=== PATIENT | female | born 1955 | race African-American/Black ===

== ENCOUNTER → 2017-04-29 | Day surgery (SDC) | payer MEDICARE, MEDICAID ==
[~2017-04-29] VITALS: Ht 157.5 cm; Wt 74.4 kg
[~2017-04-29] MED LIST: ATEN100T PO; BUPIVACAINE/EPINEPHRINE 0.5% 50 ML VIAL ONE; BUPIVACAINE/EPINEPHRINE 0.5% PF 10 ML VIAL ONE; CALC667C PO; CHLORHEXIDINE GLUCONATE 2 % 1 PACK (2 CLOTHS) TOPICAL PRN; HYDR-3799 PO; LACTATED RINGER'S 1000 ML IV PRN; METOPROLOL TARTRATE 25 MG TAB PO PRN; MULT-65 PO; ONDANSETRON HCL 4 MG/2 ML VIAL IV PUSH PRN; POVIDONE IODINE 5% (ANTISEPSIS KIT) 4 APPLICATIONS EACH NARE PRN; SILVER SULFADIAZINE/LIDOCAINE CREAM 60 GM JAR EXTERNAL ONE; SODIUM CHLORID 0.9% 500 ML IV PRN; oxyCODONE/ACETAMINOPHEN 5 MG/325 MG TAB PO PRN
--- NOTE | 2017-04-29 11:56 | PD.HP.UP ---
H&P Update Note The Pre-Admit History and Physical Examination regarding the above named patient was reviewed (including, but not limited to, vital signs, heart, lungs, co-morbid conditions), and upon re-examination it is noted that: the patient's condition has not significantly changed since the last examination. Candido Erickson MD Apr 29, 2017 11:56
[2017-04-29 11:59] LABS: AUTOMATED NEUTROPHIL # 4.2 TH/MM3 (1.8-7.7); BASOPHIL # 0.1 TH/MM3 (0-0.2); EOSINOPHIL # 0.2 TH/MM3 (0-0.4); EOSINOPHIL % 2.8 % (0.0-4.0); HEMATOCRIT 34.8 % (35.0-46.0); HEMOGLOBIN 11.6 GM/DL (11.6-15.3); LYMPH % 24.5 % (9.0-44.0); LYMPHOCYTE # 1.6 TH/MM3 (1.0-4.8); MEAN CELL VOLUME 94.5 FL (80.0-100.0); MEAN CORPUSCULAR HEMOGLOBIN 31.5 PG (27.0-34.0); MEAN CORPUSCULAR HGB CONC 33.4 % (32.0-36.0); MEAN PLATELET VOLUME 11.6 FL (7.0-11.0); MONO % 8.3 % (0.0-8.0); MONOCYTE # 0.6 TH/MM3 (0-0.9); NEUT % 63.4 % (16.0-70.0); PLATELET COUNT 165 TH/MM3 (150-450); RED BLOOD COUNT 3.68 MIL/MM3 (4.00-5.30); WHITE BLOOD COUNT 6.6 TH/MM3 (4.0-11.0)
[2017-04-29 14:40] VITALS: BP 147/90; PULSE 67; RESP 20; TEMP 98.2; O2SAT 100
--- NOTE | 2017-04-30 10:50 | EKG ---
Date Performed: 04/29/2017 Time Performed: 11:46:57 PTAGE: 61 years EKG: Sinus rhythm NONSPECIFIC T-WAVE ABNORMALITY BORDERLINE ECG NO PREVIOUS TRACING DOCTOR: Zack Young Interpretating Date/Time 04/30/2017 10:49:10
--- NOTE | 2017-05-02 13:19 | MP ---
cc: CLAUDIA ABBASI M.D. DATE OF SURGERY 04/29/2017 PREOPERATIVE DIAGNOSIS Anal condyloma. PROCEDURE Exam under anesthesia with excision and fulguration of anal condyloma. POSTOPERATIVE DIAGNOSIS Anal condyloma. SURGEON Dr. Abbasi. DETAILS OF PROCEDURE The patient was placed in the left lateral decubitus position. After adequate anesthesia sedation the anal canal was prepped with Betadine solution and draped in the usual sterile fashion. Local anesthesia was obtained by injection of 0.5% Marcaine with epinephrine. The anal canal was dilated and a half-salter retractor inserted. Examination revealed condylomatous-type lesions along the anal canal from the anal verge up towards the dentate line in multiple quadrants. These were progressively excised and the bases fulgurated with electrocautery. After rather extensive fulguration no further lesions were obvious. There were some papilla and some benign hemorrhoid tissue but no other gross condylomatous tissue was remaining. The area was dressed with some Silvadene cream and a large Fluff dressing externally. The patient tolerated the procedure quite well and was brought to the recovery room in stable condition. MD BECKIE Sutherland/ALLIE /8:57 AM /1:01 PM
== END | disposition home or self-care (01) ==
LOC: HSDC 10:49
PROVIDERS: ATTEND Colon & Rectal Surgery
DX: A63.0 Anogenital (venereal) warts (principal); K62.89 Other specified diseases of anus and rectum; I12.0 Hypertensive chronic kidney disease with stage 5 chronic kidney disease or end stage renal disease; N18.6 End stage renal disease; Z99.2 Dependence on renal dialysis; Z01.810 Encounter for preprocedural cardiovascular examination; Z01.818 Encounter for other preprocedural examination
CPT/HCPCS: 00902; 46922; 85025; 93005; J7040